=== PATIENT | male | born 1965 | race African-American/Black ===

== ENCOUNTER 2024-01-05 16:15 | Inpatient (IN) | payer BC, MEDICAID ==
[~2024-01-05] VITALS: Ht 182.9 cm; Wt 74.4 kg
[~2024-01-05 16:15] MED LIST: ACET160S PEG; ATROV INH; CEFE2FRO IV; CLON0.1T PEG; DOCU-138 PO; FAMO20TA8 PO; HYDR-4001 MT; HYDR-4001 PEG; KEPPSOL PEG; LEVO750T68 PO; METO25TA6 PEG; P20 PO
[2024-01-05 16:30] VITALS: PULSE 77; RESP 18
[2024-01-05 17:41] LABS: BG BASE EXCESS 2.5 mmol/L (-2.0-2.0); BG CARBOXYHEMOGLOBIN 0.2 % (0.5-1.5); BG DEOXYHEMOGLOBIN 2.3 % (0.0-5.0); BG FRACTION INSPIRED OXYGEN 40; BG HCO3 ACT 25.9 mmol/L (22.0-26.0); BG METHEMOGLOBIN 0.3 % (0.0-1.5); BG OXYGEN SATURATION 97.7 % (92.0-98.5); BG OXYHEMOGLOBIN 97.2 % (94.0-97.0); BG PCO2 35.8 mmHg (35.0-45.0); BG PH 7.478 (7.350-7.450); BG PO2 109.7 mmHg (75.0-100.0); BG SAMPLE SITE RIGHT RADIAL; BG TOTAL HEMOGLOBIN 10.7 g/dL (12.0-18.0); BG VENT MODE VENT - AC
[2024-01-05 17:46] LABS: HEMATOCRIT. 32.5 % (42.0-52.0); HEMOGLOBIN. 10.3 g/dL (14.0-18.0); MEAN CORPUSCULAR HEMOGLOBIN 28.4 pg (28.0-32.0); MEAN CORPUSCULAR HGB CONC 31.7 g/dL (31.0-37.0); MEAN CORPUSCULAR VOLUME 89.6 fL (80.0-94.0); MEAN PLATELET VOLUME 8.7 fl (7.4-10.4); PLATELET 141 x1000/uL (130-400); RED BLOOD CELL COUNT 3.63 mill/uL (4.7-6.1); WHITE BLOOD COUNT 4.5 x1000/uL (4.5-11.0)
[2024-01-05 17:47] LABS: DIFFERENTIAL COMMENT 1
[2024-01-05 17:52] VITALS: PULSE 77; RESP 18
[2024-01-05 18:05] LABS: ALANINE AMINOTRANSFERASE 33 IU/L (10-49); ALBUMIN 3.8 g/dL (3.2-4.8); ASPARTATE AMINOTRANSFERASE 23 IU/L (<34); BILIRUBIN TOTAL 0.5 mg/dL (0.1-1.0); CALCIUM 8.6 mg/dL (8.7-10.4); CARBON DIOXIDE 28 mEq/L (21-32); CHLORIDE 97 mEq/L (98-107); CREATININE 0.5 mg/dL (0.6-1.3); GLUCOSE 87 mg/dL (70-105); POTASSIUM 3.8 mEq/L (3.5-5.1); PROTEIN TOTAL 7.1 g/dL (6.0-8.3); SODIUM 132 mEq/L (136-145); UREA NITROGEN BLOOD 10 mg/dL (9-23)
[2024-01-05 18:06] LABS: TROPONIN I HIGH SENSITIVITY < 4 ng/L (3.0-53)
[2024-01-05] MEDS: SODIUM CHLORIDE 0.9% 1000ML BAG (SEPSIS BOLUS) IV ONE (18:14)
[2024-01-05] MEDS: PIPERACILLIN/TAZO 3.375G/50ML 50 ML IV ONE (18:14)
[2024-01-05] MEDS: VANCOMYCIN 1G PREMIX 200 ML IV ONE (18:46)
[2024-01-05 19:22] LABS: ANISOCYTOSIS 1+; PLATELET ESTIMATE NORMAL
[2024-01-05] MEDS ORDERED: ONDANSETRON HCL 4MG/2ML INJ IV PRN (19:45)
[2024-01-05] MEDS ORDERED: DOCUSATE SODIUM 100MG CAPSULE PO PRN (19:45)
[2024-01-05] MEDS ORDERED: GUAIFENESIN 200MG/10ML SUGAR FREE UDC PO PRN (19:45)
[2024-01-05] MEDS ORDERED: MAGNESIUM/ALUMINUM HYDROXIDE/SIMETHICONE 30ML UDC PO PRN (19:45)
[2024-01-05] MEDS ORDERED: CLONIDINE 0.1MG TABLET PO PRN (19:45)
[2024-01-05] MEDS ORDERED: ACETAMINOPHEN 650MG/20.3ML UDC GT PRN ×2 (19:45)
[2024-01-05] MEDS ORDERED: IPRATROPIUM/ALBUTEROL 0.5-3(2.5)MG/3ML NEB HHN PRN (19:45)
[2024-01-05 20:20] VITALS: PULSE 68; RESP 19
[2024-01-05 21:38] LABS: CLARITY URINE CLEAR (CLEAR); COLOR URINE YELLOW (YELLOW); GLUCOSE URINE NEGATIVE (NEGATIVE); KETONES URINE NEGATIVE (NEGATIVE); LEUKOCYTE ESTERASE URINE TRACE (NEGATIVE); NITRITE URINE NEGATIVE (NEGATIVE); OCCULT BLOOD URINE NEGATIVE (NEGATIVE); PROTEIN URINE NEGATIVE (NEGATIVE); SPECIFIC GRAVITY URINE 1.015 (1.005-1.030); UROBILINOGEN URINE 0.2 E.U./dL (0.2-1.0)
[2024-01-05] MEDS: SODIUM CHLORIDE 0.9% 1,000 ML IV SCH (21:46)
[2024-01-05 22:14] LABS: BACTERIA URINE 2+; RBC URINE 0-2 /hpf (0-2); SQUAMOUS EPITHELIAL CELL URINE RARE /lpf (RARE/1+); WBC URINE 0-2 /hpf (0-2)
[2024-01-05 22:22] LABS: *AMPHETAMINES SCREEN URINE NEGATIVE (NEGATIVE); *BARBITURATES SCREEN URINE NEGATIVE (NEGATIVE); *BENZODIAZEPINES SCREEN URINE NEGATIVE (NEGATIVE); *COCAINE SCREEN URINE NEGATIVE (NEGATIVE); CANNABINOID URINE SCREEN NEGATIVE (NEGATIVE); ECSTASY MDMA SCREEN URINE NEGATIVE (NEGATIVE); METHADONE URINE SCREEN Neg (NEGATIVE); OPIATES URINE SCREEN NEGATIVE (NEGATIVE); PHENCYCLIDINE URINE SCREEN NEGATIVE (NEGATIVE)
[2024-01-05] MEDS: VANCOMYCIN 750MG PREMIX 150 ML IV SCH (22:23)
[2024-01-05 23:33] LABS: CREATINE KINASE 23 IU/L (46-171)
[2024-01-05 23:46] VITALS: PULSE 72; RESP 18
[2024-01-06] VITALS (19 sets, daily range): BP systolic 110–133; BP diastolic 75–85; PULSE 57–74; RESP 17–19; TEMP 97.1–97.7
[2024-01-06 05:26] LABS: HEMOGLOBIN. 9.4 g/dL (14.0-18.0); MEAN CORPUSCULAR HEMOGLOBIN 28.8 pg (28.0-32.0); MEAN CORPUSCULAR HGB CONC 33.4 g/dL (31.0-37.0); MEAN CORPUSCULAR VOLUME 86.3 fL (80.0-94.0); MEAN PLATELET VOLUME 8.6 fl (7.4-10.4); PLATELET 135 x1000/uL (130-400); RED BLOOD CELL COUNT 3.25 mill/uL (4.7-6.1); RED CELL DISTRIBUTION WIDTH 19.5 % (11.6-14.6); WHITE BLOOD COUNT 3.9 x1000/uL (4.5-11.0)
[2024-01-06 05:43] LABS: DIFFERENTIAL COMMENT 1
[2024-01-06 05:48] LABS: ALANINE AMINOTRANSFERASE 28 IU/L (10-49); ALBUMIN 3.8 g/dL (3.2-4.8); ASPARTATE AMINOTRANSFERASE 16 IU/L (<34); BILIRUBIN TOTAL 0.8 mg/dL (0.1-1.0); CALCIUM 8.5 mg/dL (8.7-10.4); CARBON DIOXIDE 26 mEq/L (21-32); CHLORIDE 100 mEq/L (98-107); CHOLESTEROL 95 mg/dL (<200); CREATINE KINASE 20 IU/L (46-171); CREATININE 0.4 mg/dL (0.6-1.3); GLUCOSE 86 mg/dL (70-105); HDL CHOLESTEROL 27 mg/dL (>55); LDL CHOLESTEROL 57 mg/dL (5-100); PHOSPHORUS 2.8 mg/dL (2.5-4.9); POTASSIUM 3.7 mEq/L (3.5-5.1); PROTEIN TOTAL 7.5 g/dL (6.0-8.3); SODIUM 131 mEq/L (136-145); T4 FREE 0.93 ng/dL (0.89-1.76); THYROID STIMULATING HORMONE 0.12 uIU/mL (0.55-4.78); TRIGLYCERIDE 64 mg/dL (0-150); UREA NITROGEN BLOOD 9 mg/dL (9-23)
[2024-01-06] MEDS: PIPERACILLIN/TAZO 3.375G/50ML 50 ML IV SCH (06:11)
[2024-01-06] MEDS ORDERED: MEROPENEM 1G/100ML 100 ML IV SCH (08:00)
[2024-01-06 08:01] LABS: PLATELET ESTIMATE NORMAL
[2024-01-06] MEDS: LEVETIRACETAM 500MG/5ML CUP GT SCH (10:30)
[2024-01-06] MEDS: PANTOPRAZOLE SODIUM 40 MG/VIAL IV SCH (10:31)
[2024-01-06] MEDS: MIDODRINE HCL 5MG TABLET GT SCH (10:31)
[2024-01-06] MEDS: ENOXAPARIN 40MG/0.4ML SYR SUBCUT SCH (10:32)
[2024-01-06] MEDS: METOPROLOL TARTRATE 25MG TABLET GT SCH (10:32)
[2024-01-06] MEDS: MIDODRINE HCL 2.5MG TABLET GT SCH (18:06)
[2024-01-06] MEDS: MEROPENEM 1G/100ML 100 ML IV SCH (18:06)
[2024-01-06] MEDS: VANCOMYCIN 1GM/200ML PMX (BAXTER) IV SCH (18:06)
[2024-01-06] MEDS: ATORVASTATIN CALCIUM 40MG TABLET GT SCH (21:32)
[2024-01-07] VITALS (21 sets, daily range): BP systolic 107–149; BP diastolic 72–86; PULSE 59–68; RESP 17–21; TEMP 97–97.7
[2024-01-07] MEDS: MEROPENEM 1G/100ML 100 ML IV SCH (01:08)
[2024-01-07 03:20] LABS: HEMOGLOBIN. 7.7 g/dL (14.0-18.0); MEAN CORPUSCULAR HEMOGLOBIN 27.6 pg (28.0-32.0); MEAN CORPUSCULAR HGB CONC 32.1 g/dL (31.0-37.0); MEAN CORPUSCULAR VOLUME 85.8 fL (80.0-94.0); MEAN PLATELET VOLUME 9.1 fl (7.4-10.4); PLATELET 118 x1000/uL (130-400); RED CELL DISTRIBUTION WIDTH 19.5 % (11.6-14.6); WHITE BLOOD COUNT 2.9 x1000/uL (4.5-11.0)
[2024-01-07 03:31] LABS: DIFFERENTIAL COMMENT 1
[2024-01-07 03:34] LABS: ALANINE AMINOTRANSFERASE 23 IU/L (10-49); ALBUMIN 3.2 g/dL (3.2-4.8); ASPARTATE AMINOTRANSFERASE 12 IU/L (<34); CARBON DIOXIDE 25 mEq/L (21-32); CHLORIDE 101 mEq/L (98-107); CREATININE 0.3 mg/dL (0.6-1.3); GLUCOSE 72 mg/dL (70-105); POTASSIUM 3.3 mEq/L (3.5-5.1); PROTEIN TOTAL 5.9 g/dL (6.0-8.3); SODIUM 132 mEq/L (136-145); UREA NITROGEN BLOOD 8 mg/dL (9-23)
[2024-01-07 05:46] LABS: PLATELET ESTIMATE NORMAL
[2024-01-07] MEDS: KCL 20MEQ/100ML PREMIX 100 ML IV SCH (09:29)
[2024-01-08] VITALS (21 sets, daily range): BP systolic 109–131; BP diastolic 74–84; PULSE 60–74; RESP 15–27; TEMP 97.3–98.6
[2024-01-08 06:40] LABS: HEMATOCRIT. 25.8 % (42.0-52.0); HEMOGLOBIN. 8.4 g/dL (14.0-18.0); MEAN CORPUSCULAR HEMOGLOBIN 28.1 pg (28.0-32.0); MEAN CORPUSCULAR HGB CONC 32.7 g/dL (31.0-37.0); MEAN CORPUSCULAR VOLUME 85.9 fL (80.0-94.0); MEAN PLATELET VOLUME 9.4 fl (7.4-10.4); PLATELET 146 x1000/uL (130-400); RED BLOOD CELL COUNT 3.01 mill/uL (4.7-6.1); RED CELL DISTRIBUTION WIDTH 19.9 % (11.6-14.6); WHITE BLOOD COUNT 2.6 x1000/uL (4.5-11.0)
[2024-01-08 06:46] LABS: DIFFERENTIAL COMMENT 1
[2024-01-08 07:38] LABS: CALCIUM 8.1 mg/dL (8.7-10.4); CARBON DIOXIDE 24 mEq/L (21-32); CHLORIDE 103 mEq/L (98-107); GLUCOSE 95 mg/dL (70-105); POTASSIUM 3.4 mEq/L (3.5-5.1); SODIUM 133 mEq/L (136-145); UREA NITROGEN BLOOD 6 mg/dL (9-23)
[2024-01-08 07:50] LABS: CREATININE 0.4 mg/dL (0.6-1.3)
[2024-01-08] MEDS ORDERED: DOCUSATE SODIUM SUGAR FREE 100MG/10ML UDC GT PRN (10:00)
[2024-01-08] MEDS: KCL 20MEQ/100ML PREMIX 100 ML IV NR (17:17)
[2024-01-08 18:21] LABS: ANISOCYTOSIS 1+; PLATELET ESTIMATE NORMAL
[2024-01-09] VITALS (17 sets, daily range): BP systolic 109–138; BP diastolic 69–78; PULSE 69–79; RESP 18–19; TEMP 97.8–99; O2SAT 100
[2024-01-09 06:12] LABS: HEMATOCRIT. 25.5 % (42.0-52.0); HEMOGLOBIN. 8.5 g/dL (14.0-18.0); MEAN CORPUSCULAR HGB CONC 33.4 g/dL (31.0-37.0); MEAN CORPUSCULAR VOLUME 86.8 fL (80.0-94.0); MEAN PLATELET VOLUME 9.3 fl (7.4-10.4); PLATELET 156 x1000/uL (130-400); RED BLOOD CELL COUNT 2.94 mill/uL (4.7-6.1); WHITE BLOOD COUNT 2.9 x1000/uL (4.5-11.0)
[2024-01-09 06:20] LABS: CHLORIDE 104 mEq/L (98-107); SODIUM 135 mEq/L (136-145)
[2024-01-09 06:21] LABS: CARBON DIOXIDE 26 mEq/L (21-32)
[2024-01-09 06:22] LABS: CALCIUM 8.2 mg/dL (8.7-10.4)
[2024-01-09 06:26] LABS: CREATININE 0.3 mg/dL (0.6-1.3); GLUCOSE 102 mg/dL (70-105)
[2024-01-09 06:37] LABS: UREA NITROGEN BLOOD < 5 mg/dL (9-23)
[2024-01-09 07:05] LABS: DIFFERENTIAL COMMENT 1
[2024-01-09] MEDS ORDERED: LEVO-65 MT (11:51)
[2024-01-09 19:05] LABS: PLATELET ESTIMATE NORMAL
== END 2024-01-09 19:17 | DRG 853 ==
LOC: ER 16:15 → 5EST 18:54 → EDBEDREQSVC 18:56 → EDBEDREQTM 18:56 → EDBEDREQ 18:56 → SUPCPDRO 01-06 07:41
PROVIDERS: ADMIT Internal Medicine; ATTEND Internal Medicine
PROC: 5A1945Z Respiratory Ventilation, 24-96 Consecutive Hours (ICD-10-PCS; principal; 2024-01-05)
PROC: 0BH17EZ Insertion of Endotracheal Airway into Trachea, Via Natural or Artificial Opening (ICD-10-PCS; 2024-01-05)
PROC: 0KBN0ZZ Excision of Right Hip Muscle, Open Approach (ICD-10-PCS; 2024-01-08)
DX: A41.9 Sepsis, unspecified organism (principal); G93.41 Metabolic encephalopathy; L89.154 Pressure ulcer of sacral region, stage 4; J96.22 Acute and chronic respiratory failure with hypercapnia; I82.512 Chronic embolism and thrombosis of left femoral vein; N17.9 Acute kidney failure, unspecified; N39.0 Urinary tract infection, site not specified; I11.0 Hypertensive heart disease with heart failure; I50.9 Heart failure, unspecified; Z99.81 Dependence on supplemental oxygen; E11.9 Type 2 diabetes mellitus without complications; G40.909 Epilepsy, unspecified, not intractable, without status epilepticus; D64.9 Anemia, unspecified; I48.91 Unspecified atrial fibrillation; N40.0 Benign prostatic hyperplasia without lower urinary tract symptoms; Z20.822 Contact with and (suspected) exposure to COVID-19; R13.10 Dysphagia, unspecified; K21.9 Gastro-esophageal reflux disease without esophagitis; E87.6 Hypokalemia; E78.00 Pure hypercholesterolemia, unspecified; Z98.2 Presence of cerebrospinal fluid drainage device; Z93.1 Gastrostomy status; Z86.73 Personal history of transient ischemic attack (TIA), and cerebral infarction without residual deficits; Z79.899 Other long term (current) drug therapy; Z74.01 Bed confinement status; Z88.8 Allergy status to other drugs, medicaments and biological substances
CPT/HCPCS: 36415; 36600; 71045; 80048; 80053; 80061; 80202; 80305; 81003; 82375; 82550; 82805; 82962; 83036; 83605; 83735; 83880; 84100; 84145; 84439; 84443; 84484; 85025; 87070; 87077; 87186; 87426; 93005; 93970; 94002; 94003; 99285; A6261; C9113; J1650; J2185; J2543; J3370; J3480; J7030; A4315